=== PATIENT | female | born 1965 | race Caucasian/White ===

== ENCOUNTER 2017-12-25 17:41 | Emergency (ER) | payer BC ==
[2017-12-25] MEDS: fentaNYL PF VIAL 100 MCG/2 ML VIAL IV ×2 (19:18→21:29)
[2017-12-25] MEDS: ONDANSETRON PF 4 MG/2 ML VIAL. IV (19:18)
[2017-12-25] MEDS: ORPHENADRINE CITRATE 60 MG/2 ML VIAL. IV (19:19)
[2017-12-25] MEDS: IV NORMAL SALINE 1000ML BAG 1,000 ML IV (19:19)
[2017-12-25 19:20] LABS: ADD MAN DIFF? NO
[2017-12-25 19:21] LABS: BASO # 0.1 x10^3/uL (0.0-0.2); BASO % 1 % (0-3); EOS # 0.4 x10^3/uL (0.0-0.7); EOS % 6 % (0-3); HEMATOCRIT 38.9 % (36.0-47.0); HEMOGLOBIN 13.5 g/dL (12.0-15.5); LYMPH # 2.4 x10^3/uL (1.0-4.8); LYMPH % 31 % (24-48); MEAN CORPUSCULAR HEMOGLOBIN 31 pg (25-35); MEAN CORPUSCULAR HGB CONC 35 g/dL (31-37); MEAN CORPUSCULAR VOLUME 90 fL (79-100); MONO # 0.6 x10^3/uL (0.0-1.1); MONO % 8 % (0-9); NEUT # 4.2 x10^3uL (1.8-7.7); NEUT % 54 % (31-73); PLATELET COUNT 228 x10^3/uL (140-400); RED BLOOD COUNT 4.34 x10^6/uL (3.50-5.40); RED CELL DISTRIBUTION WIDTH 13.3 % (11.5-14.5); WHITE BLOOD COUNT 7.8 x10^3/uL (4.0-11.0)
[2017-12-25 19:30] LABS: ANION GAP 6 (6-14); BLOOD UREA NITROGEN 10 mg/dL (7-20); BUN/CREATININE RATIO 13 (6-20); CALCIUM 8.7 mg/dL (8.5-10.1); CARBON DIOXIDE 28 mmol/L (21-32); CHLORIDE 105 mmol/L (98-107); CREATININE 0.8 mg/dL (0.6-1.0); GFR 75.3; GLUCOSE 92 mg/dL (70-99); POTASSIUM 3.7 mmol/L (3.5-5.1); SODIUM 139 mmol/L (136-145)
[2017-12-25] MEDS ORDERED: CONTRAST GIVEN MC (19:30)
[2017-12-25 19:36] LABS: ALBUMIN 3.4 g/dL (3.4-5.0); ALBUMIN/GLOBULIN RATIO 0.9 (1.0-1.7); ALK PHOS 92 U/L (46-116); ALT (SGPT) 21 U/L (14-59); AST (SGOT) 23 U/L (15-37); TOTAL BILIRUBIN 0.4 mg/dL (0.2-1.0); TOTAL PROTEIN 7.4 g/dL (6.4-8.2)
[2017-12-25] MEDS: IOHEXOL 300 MG/ML 100ML VIAL. IV (20:00)
== END 2017-12-25 21:39 | disposition home or self-care (01) ==
LOC: ER 21:39
DX: S22.32XA Fracture of one rib, left side, initial encounter for closed fracture (principal); R10.814 Left lower quadrant abdominal tenderness; R10.812 Left upper quadrant abdominal tenderness; M54.5 Low back pain; M54.6 Pain in thoracic spine; Z90.710 Acquired absence of both cervix and uterus; W17.89XA Other fall from one level to another, initial encounter; Y93.89 Activity, other specified; Y92.89 Other specified places as the place of occurrence of the external cause; Y99.8 Other external cause status
CPT/HCPCS: 36415; 74177; 80053; 85025; 96361; 96374; 96375; 96376; 99285-25; J2360; J2405; J3010; J7030; Q9967

== ENCOUNTER → 2019-05-17 | Outpatient (CLI) | payer BC ==
[2017-12-25 19:21] VITALS: BP 147/73
[~2019-05-17] MED LIST: BACL10TA PO; HYDR-2761 PO
--- NOTE | 2019-05-17 18:07 | RAD ---
Examination: DIGITAL DIAGNOSTIC RT, US GUID NDL PLACE/ASPI/BX History: Abnormal ultrasound. Suspicious mass reported. Comparison/Correlation: 04/27/2019 right breast ultrasound and diagnostic mammogram Findings: Risks and benefits of ultrasound-guided core biopsy of the patient's known right breast at 11:00 mass were discussed and informed consent was obtained. Preliminary ultrasound imaging was performed. The palpable mass involving the right upper outer breast is larger upon palpation as correlated with the ultrasound finding of a 22/11/2018. The mass described on the prior ultrasound exam likely represent a small component of the larger heterogeneous ovoid well-circumscribed mass noted on today's ultrasound exam. Lateral approach was utilized. Cleansing with ChloraPrep was performed. Sterile drapes and sterile gel utilized. 7 cc of 1 percent lidocaine was utilized. Small scalpel incision was made. An introducer was placed. 12-gauge core biopsy needle was placed into the right breast mass. Total of 4 passes were acquired including a single pass of the hypoechoic lesion described on 04/27/2019 ultrasound report. Clip marker was then placed via the introducer. Specimens were placed in a formalin jar and sent to lab. No immediate comp occasions. Right MLO and CC images were obtained following biopsy. Clip marker is present at the upper outer aspect. No hematoma or other suspicious finding. Heterogeneously dense breast parenchyma. Impression: Successful biopsy of the patient's right upper outer breast mass. Upon palpation, this mass is larger in size as compared to the mass reported on ultrasound exam of 04/27/2019. 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 The mass reported on previous ultrasound exam may represent a component of a larger mass which was biopsied at the time of the patient's visit. Electronically signed by: Tha Coronado MD (05/17/2019 6:04 PM) [facility]
--- NOTE | 2019-05-21 15:07 | PATHOLOGY ---
[facility] Accession Number: [id number] . 01 Material submitted: . breast - RIGHT BREAST MASS. Modifiers: right . 01 Clinical history: . Right breast mass. . 02 Diagnosis: Breast, right, biopsy: - Fibroadenoma with associated fibrocystic changes. - Negative for malignancy. (MAP:[facility]; 05/21/2019) . . Co-review: S 05/21/2019 1123 Local . 02 Electronically signed: . Michael Jason MD, Pathologist NPI- [id number] . 01 Gross description: . Received in formalin labeled "Winnie Sena, right breast" are multiple cylindrical cores of nelson-white soft tissue measuring in aggregate 1.8 x 1.2 x 0.3 cm. The specimen is submitted entirely in cassettes A1-A3. The specimen is removed from the patient at 1031 and placed in formalin at 1041 on May 17, 2019. The specimen is removed from formalin at 2340 on May 17, 2019. ([facility] [place]; 05/17/2019) [facility] 05/17/2019 1704 Local . 02 Pathologist provided ICD-10: D24.1 . 02 CPT . 948338 Specimen Comment: A courtesy copy of this report has been sent to Specimen Comment: [phone], . Specimen Comment: Report sent to / DR RIVERA Performed at: 01 [facility] [address], [place] [id number] MD Shane Sultana MD Phone: [phone] Performed at: 02 [facility] [address] [place], [place] [id number] MD Rob Spring MD Phone: [phone]
== END | disposition home or self-care (01) ==
LOC: US 09:24
PROVIDERS: ATTEND Physician Assistant
DX: D24.2 Benign neoplasm of left breast (principal); N60.11 Diffuse cystic mastopathy of right breast
CPT/HCPCS: 19083; 77065; 88305; C1713; 19081; 76942